=== PATIENT | female | born 1985 | race Caucasian/White ===

== ENCOUNTER 2017-11-20 14:12 | Emergency (ER) | payer BC ==
[~2017-11-20] VITALS: Ht 165.1 cm; Wt 115.0 kg
[~2017-11-20 14:12] MED LIST: ALBU0.08 NEB; AZIT500T2 PO; CODE30TA2 PO; IBUP-1129; MOBI7.5T PO
[2017-11-20 14:25] VITALS: BP 163/96; PULSE 92; RESP 16; TEMP 98.3; O2SAT 98
[2017-11-20] MEDS ORDERED: SODIUM CHLOR 0.9% 1000 ML INJ 1,000 ML IV SCH (15:35)
--- NOTE | 2017-11-20 15:40 | PD ---
HPI Chief Complaint: Abdominal Pain Time Seen by Provider: 15:29 Travel History International Travel<30 days: No Contact w/Intl Traveler<30days: No Traveled to known affect area: No History of Present Illness HPI This is a 32-year-old female who presents for evaluation of abdominal pain. Symptoms started 5 days ago. She describes it as a dull aching pain which is constant, worse with palpation of her abdomen. Symptoms are moderate. No alleviating factors. She reports history of endometrial ablation performed on October 31, [address] Reynaga. She had a routine follow-up appointment today with Dr. Reynaga where a pelvic examination and a pelvic transvaginal ultrasound was performed. She was told that these tests were normal and she was encouraged to come to the ER for further evaluation for possible diverticulitis. Denies any history of diverticulosis. Denies any nausea, vomiting, diarrhea, constipation, dysuria, flank pain, fevers or chills. Denies any unusual discharge. She is still having mild bleeding from the surgery. She has no other complaints. PFSH Past Medical History Asthma: Yes Blood Disorders: No Anxiety: Yes Depression: Yes Heart Rhythm Problems: No Cancer: No Cardiovascular Problems: Yes High Cholesterol: No Chemotherapy: No Chest Pain: No Congestive Heart Failure: No COPD: No Diabetes: No Endocrine: No Genitourinary: No Musculoskeletal: No Neurologic: No Psychiatric: Yes Reproductive: No Respiratory: Yes Radiation Therapy: No Sleep Apnea: No Thyroid Disease: No ?: Not : 1 Para: 1 Past Surgical History Section: Yes Gynecologic Surgery: Yes () Social History Alcohol Use: No Tobacco Use: Yes Substance Use: No Allergies-Medications (Allergen,Severity, Reaction): Coded Allergies: cefaclor (Verified Allergy, Severe, UNKNOWN, 11/20/17) sulfamethoxazole (Verified Allergy, Severe, UNKNOWN, 11/20/17) trimethoprim (Verified Allergy, Severe, UNKNOWN, 11/20/17) Reported Meds & Prescriptions Reported Meds & Active Scripts Active Phenergan (Promethazine HCl) 25 Mg Tablet 25 Mg PO Q6H PRN Hydrocodone-Acetaminophen 5-325 mg Tab 1 Tab PO Q6H PRN Cipro (Ciprofloxacin HCl) 500 Mg Tab 500 Mg PO BID 10 Days Flagyl (Metronidazole) 500 Mg Tab 500 Mg PO TID 10 Days Review of Systems Except as stated in HPI: all other systems reviewed are Neg Physical Exam Narrative GENERAL: Well-developed well-nourished female no acute distress SKIN: Warm and dry. HEAD: Atraumatic. Normocephalic. EYES: Pupils equal and round. No scleral icterus. No injection or drainage. ENT: No nasal bleeding or discharge. Mucous membranes pink and moist. NECK: Trachea midline. No JVD. CARDIOVASCULAR: Regular rate and rhythm. No murmur appreciated. RESPIRATORY: No accessory muscle use. Clear to auscultation. Breath sounds equal bilaterally. GASTROINTESTINAL: Abdomen soft, mild focal left lower quadrant tenderness without guarding. MUSCULOSKELETAL: No obvious deformities. No clubbing. No cyanosis. No edema. NEUROLOGICAL: Awake and alert. No obvious cranial nerve deficits. Motor grossly within normal limits. Normal speech. Data Data Last Documented VS Vital Signs Date Time Temp Pulse Resp B/P (MAP) Pulse Ox O2 Delivery O2 Flow Rate FiO2 11/20/17 14:25 98.3 92 16 163/96 (118) 98 Orders Orders Complete Blood Count With Diff (11/20/17 15:35) Comprehensive Metabolic Panel (11/20/17 15:35) Lipase (11/20/17 15:35) Urinalysis - C+S If Indicated (11/20/17 15:35) Ct Abd/Pel W Iv Contrast(Rout) (11/20/17 15:35) Iv Access Insert/Monitor (11/20/17 15:35) Ecg Monitoring (11/20/17 15:35) Oximetry (11/20/17 15:35) Morphine Inj (Morphine Inj) (11/20/17 15:45) Sodium Chlor 0.9% 1000 Ml Inj (Ns 1000 M (11/20/17 15:35) Sodium Chloride 0.9% Flush (Ns Flush) (11/20/17 15:45) Ondansetron Odt (Zofran Odt) (11/20/17 15:45) Iohexol 350 Inj (Omnipaque 350 Inj) (11/20/17 17:57) Ciprofloxacin 400 Mg Premix (Cipro 400 M (11/20/17 18:15) Metronidazole 500 Mg Inj (Flagyl 500 Mg (11/20/17 18:15) Ed Discharge Order (6/12/18 18:05) Labs Laboratory Tests Test 11/20/17 15:50 White Blood Count 10.9 TH/MM3 Red Blood Count 5.20 MIL/MM3 Hemoglobin 14.5 GM/DL Hematocrit 42.9 % Mean Corpuscular Volume 82.6 FL Mean Corpuscular Hemoglobin 27.8 PG Mean Corpuscular Hemoglobin Concent 33.7 % Red Cell Distribution Width 13.4 % Platelet Count 339 TH/MM3 Mean Platelet Volume 9.0 FL Neutrophils (%) (Auto) 78.3 % Lymphocytes (%) (Auto) 16.5 % Monocytes (%) (Auto) 4.3 % Eosinophils (%) (Auto) 0.2 % Basophils (%) (Auto) 0.7 % Neutrophils # (Auto) 8.5 TH/MM3 Lymphocytes # (Auto) 1.8 TH/MM3 Monocytes # (Auto) 0.5 TH/MM3 Eosinophils # (Auto) 0.0 TH/MM3 Basophils # (Auto) 0.1 TH/MM3 CBC Comment DIFF FINAL Differential Comment Urine Color LIGHT-YELLOW Urine Turbidity HAZY Urine pH 5.5 Urine Specific [place] 1.007 Urine Protein TRACE mg/dL Urine Glucose (UA) NEG mg/dL Urine Ketones 10 mg/dL Urine Occult Blood MOD Urine Nitrite NEG Urine Bilirubin NEG Urine Urobilinogen LESS THAN 2.0 MG/DL Urine Leukocyte Esterase LARGE Urine RBC 14 /hpf Urine WBC 15 /hpf Urine Squamous Epithelial Cells 18 /hpf Urine Bacteria FEW /hpf Urine Hyaline Casts 2 /lpf Urine Mucus FEW /lpf Urine Yeast (Budding) OCC Microscopic Urinalysis Comment CULT NOT INDICATED Blood Urea Nitrogen 9 MG/DL Creatinine 0.97 MG/DL Random Glucose 92 MG/DL Total Protein 8.7 GM/DL Albumin 4.3 GM/DL Calcium Level 9.2 MG/DL Alkaline Phosphatase 77 U/L Aspartate Amino Transf (AST/SGOT) 22 U/L Alanine Aminotransferase (ALT/SGPT) 27 U/L Total Bilirubin 0.6 MG/DL Sodium Level 136 MEQ/L Potassium Level 3.6 MEQ/L Chloride Level 101 MEQ/L Carbon Dioxide Level 23.4 MEQ/L Anion Gap 12 MEQ/L Estimat Glomerular Filtration Rate 67 ML/MIN Lipase 71 U/L MDM Medical Decision Making Medical Screen Exam Complete: Yes Emergency Medical Condition: Yes Medical Record Reviewed: Yes Differential Diagnosis Postoperative pain, diverticulitis, ovarian torsion, ovarian cyst, postoperative hematoma, cystitis, pelvic inflammatory disease, tubo-ovarian abscess, colitis Narrative Course Plan is for lab work, urinalysis, CT abdomen and pelvis. She will be given morphine, Zofran, IV fluids. CBC is unremarkable. CMP is unremarkable. Urinalysis reveals 15 WBCs and 14 RBCs with contamination, 18 squamous epithelial cells are noted. CT abdomen and pelvis reveals CONCLUSION: 1. Interval cholecystectomy 2. Minimal bowel wall thickening descending and sigmoid colon nonspecific without inflammatory changes in the mesentery. This can be seen with very early colitis. 3. I do not see any other etiology for the patient's abdominal pain. Her region of pain is consistent with CT findings. She has no history of ulcerative colitis. Most likely this is infectious colitis. At this point time the plan is to start the patient on Cipro and Flagyl. Discussed signs and symptoms that would warrant returning to the emergency room. Stable for discharge. Diagnosis Primary Impression: Colitis Additional Instructions: Medication as needed. Stay well hydrated. Follow-up with primary care physician in 1-2 weeks. Return for any acutely new or worsening symptoms. Med/Other Pt SpecificInfo: Prescription(s) given Scripts Promethazine (Phenergan) 25 Mg Tablet 25 MG PO Q6H Y for NAUSEA OR VOMITING, #20 TAB 0 Refills Prov: Ray Freeman MD 11/20/17 Hydrocodone-Acetaminophen (Hydrocodone-Acetaminophen) 5-325 mg Tab 1 TAB PO Q6H Y for PAIN, #15 TAB 0 Refills Prov: Ray Freeman MD 11/20/17 Ciprofloxacin (Cipro) 500 Mg Tab 500 MG PO BID for Infection for 10 Days, #20 TAB 0 Refills Prov: Ray Freeman MD 11/20/17 Metronidazole (Flagyl) 500 Mg Tab 500 MG PO TID for Infection for 10 Days, TAB 0 Refills Prov: Ray Freeman MD 11/20/17 Disposition: 01 DISCHARGE HOME Condition: Stable Ricky Gleason Nov 20, 2017 15:40
[2017-11-20] MEDS ORDERED: MORPHINE SULFATE 4 MG/ML INJ IV PUSH ONE (15:45)
[2017-11-20] MEDS ORDERED: ONDANSETRON ODT 4 MG TAB PO ONE (15:45)
[2017-11-20] MEDS ORDERED: SODIUM CHLORIDE 0.9% FLUSH 10 ML FLUSH IV FLUSH PRN (15:45)
[2017-11-20 16:15] LABS: AUTOMATED NEUTROPHIL # 8.5 TH/MM3 (1.8-7.7); BASOPHIL # 0.1 TH/MM3 (0-0.2); BASOPHIL % 0.7 % (0.0-2.0); EOSINOPHIL % 0.2 % (0.0-4.0); HEMATOCRIT 42.9 % (35.0-46.0); HEMOGLOBIN 14.5 GM/DL (11.6-15.3); LYMPH % 16.5 % (9.0-44.0); LYMPHOCYTE # 1.8 TH/MM3 (1.0-4.8); MEAN CELL VOLUME 82.6 FL (80.0-100.0); MEAN CORPUSCULAR HEMOGLOBIN 27.8 PG (27.0-34.0); MEAN CORPUSCULAR HGB CONC 33.7 % (32.0-36.0); MONO % 4.3 % (0.0-8.0); MONOCYTE # 0.5 TH/MM3 (0-0.9); NEUT % 78.3 % (16.0-70.0); PLATELET COUNT 339 TH/MM3 (150-450); RED CELL DISTRIBUTION WIDTH 13.4 % (11.6-17.2); WHITE BLOOD COUNT 10.9 TH/MM3 (4.0-11.0)
[2017-11-20 16:32] LABS: BACTERIA, URINE FEW /hpf; BILIRUBIN, URINE NEG (NEG); BLOOD, URINE MOD (NEG); GLUCOSE,URINE NEG (NEG); HYALINE CAST, URINE 2 /lpf (RARE); KETONE, URINE 10 mg/dL (NEG); MUCUS URINE FEW /lpf (OCC); NITRITE,URINE NEG (NEG); PH, URINE 5.5 (5.0-8.5); SQUAMOUS EPITHELIAL CELL URINE 18 /hpf (0-5); URINE COLOR LIGHT-YELLOW (YELLW/STRAW); URINE LEUKOCYTE ESTERASE LARGE (NEG)
[2017-11-20 16:49] LABS: ALKALINE PHOSPHATASE 77 U/L (45-117); TOTAL BILIRUBIN ADULT 0.6 MG/DL (0.2-1.0); TOTAL PROTEIN 8.7 GM/DL (6.4-8.2)
[2017-11-20 17:07] LABS: ALBUMIN 4.3 GM/DL (3.4-5.0); ALT (GPT) 27 U/L (10-53); AST (GOT) 22 U/L (15-37); BICARBONATE 23.4 MEQ/L (21.0-32.0); BLOOD UREA NITROGEN 9 MG/DL (7-18); CALCIUM 9.2 MG/DL (8.5-10.1); CHLORIDE 101 MEQ/L (98-107); CREATININE 0.97 MG/DL (0.50-1.00); GLOMERULAR FILTRATION RATE 67 ML/MIN (>89); GLUCOSE,RANDOM 92 MG/DL (74-106); SODIUM (NA) 136 MEQ/L (136-145)
[2017-11-20] MEDS ORDERED: IOHEXOL 350 MG/ML 10 ML VIAL (for RAD DIAG) IVCONTRAST ONE (17:57)
--- NOTE | 2017-11-20 18:03 | RADRPT ---
EXAM DATE: 11/20/2017 5:54 PM EDT AGE/SEX: 32 years / Female INDICATIONS: Abdominal pain x 5 days. CLINICAL DATA: This is the patient's initial encounter. Patient reports that signs and symptoms have been present for 4 - 6 days and indicates a pain score of 5/10. MEDICAL/SURGICAL HISTORY: Cardiovascular disease. Hypertension. Asthma. section. Ch olecystectomy. ORAL CONTRAST: No oral contrast ingested. RADIATION DOSE: 12.51 CTDI (mGy) [place] [facility] [place] 02/24/2011. . TECHNIQUE: Multiple contiguous axial images were obtained through the abdomen and pelvis following b olus infusion of 100 ml Omnipaque 350 (iohexol) nonionic water-soluble contrast as a single exam do se. No oral contrast ingested. Using automated exposure control and adjustment of the mA and/or kV a ccording to patient size, the radiation dose was kept as low as reasonably achievable to obtain optim al diagnostic quality images. FINDINGS: Lower lungs are clear. The liver is free of focal defects. Surgical clips gallbladder fossa Spleen and pancreas unremarkable Adrenal glands appear normal Nonrotated right kidney. Left kidney normal. There is no ascites. Region of the cecum and abdominal colon unremarkable The pelvis there is mild bowel wall thickening in the sigmoid colon without inflammatory changes evid ent. Scattered diverticula are noted. Mildly prominent uterus There is no free fluid There is no adenopathy Review of bone windows reveals mild degenerative changes both SI joints and facets at L5-S1 otherwise negative. CONCLUSION: 1. Interval cholecystectomy 2. Minimal bowel wall thickening descending and sigmoid colon nonspecific without inflammatory long es in the mesentery. This can be seen with very early colitis. 3. I do not see any other etiology for the patient's abdominal pain. Electronically signed by: Gerardo Varela MD 11/20/2017 6:02 PM EDT
[2017-11-20] MEDS ORDERED: HYDR-3516 PO (18:08)
[2017-11-20] MEDS ORDERED: CIPR-9 PO (18:08)
[2017-11-20] MEDS ORDERED: PROM25TA10 PO (18:08)
[2017-11-20] MEDS ORDERED: METR-1 PO (18:08)
[2017-11-20] MEDS ORDERED: metroNIDAZOLE 500 MG INJ 100 ML IV ONE (18:15)
[2017-11-20] MEDS ORDERED: CIPROFLOXACIN 400 MG PREMIX 200 ML IV ONE (18:15)
== END 2017-11-20 21:36 | disposition home or self-care (01) ==
LOC: NEPC 14:12
DX: K52.9 Noninfective gastroenteritis and colitis, unspecified (principal); Z72.0 Tobacco use
CPT/HCPCS: 74177; 80053; 81001; 83690; 85025; 96361; 96374; 96375; 99284; J0744; J2270; J7030; Q9967